=== PATIENT | female | born 1970 | race African-American/Black ===

== ENCOUNTER 2017-08-21 19:18 | Emergency (ER) | payer BC, OTHER ==
--- NOTE | 2017-08-21 22:57 | RAD ---
RIGHT KNEE FOUR VIEWS: 08/21/17 HISTORY: Trauma, right knee pain. FINDINGS/IMPRESSION: Degenerative changes are present. No acute fracture or dislocation identified. POS: JESSICA
--- NOTE | 2017-08-21 22:58 | RAD ---
LEFT KNEE FOUR VIEWS: 08/21/17 HISTORY: Fall. Left knee pain. FINDINGS/IMPRESSION: Degenerative changes are present. No acute fracture or dislocation identified. POS: JESSICA
--- NOTE | 2017-08-21 22:59 | RAD ---
LEFT ANKLE THREE VIEWS: 08/21/17 HISTORY: Fall, left ankle pain. FINDINGS/IMPRESSION: No acute fracture or dislocation is seen. The ankle mortise is maintained. POS: ROMAINE
== END 2017-08-21 23:06 | disposition home or self-care (01) ==
LOC: ERS 19:18
DX: S80.02XA Contusion of left knee, initial encounter (principal); S80.01XA Contusion of right knee, initial encounter; S90.02XA Contusion of left ankle, initial encounter; F41.9 Anxiety disorder, unspecified; F32.9 Major depressive disorder, single episode, unspecified; Z79.4 Long term (current) use of insulin; Z79.02 Long term (current) use of antithrombotics/antiplatelets; Z79.899 Other long term (current) drug therapy; W01.0XXA Fall on same level from slipping, tripping and stumbling without subsequent striking against object, initial encounter; Y99.0 Civilian activity done for income or pay